=== PATIENT | female | born 1990 | race Caucasian/White ===

== ENCOUNTER 2020-08-18 23:08 | Emergency (ER) | payer MEDICAID ==
[~2020-08-18] VITALS: Ht 154.9 cm; Wt 70.0 kg
[2020-08-18] MEDS ORDERED: ONDANSETRON 2MG/ML, 2ML IVPush ONE (23:30)
[2020-08-18] MEDS ORDERED: HYDROmorphone 1 MG/ML, 1ML INJ IV ONE (23:30)
[2020-08-18] MEDS ORDERED: HYDROmorphone 1 MG/ML, 1ML INJ ONE ×2 (23:32→23:55)
[2020-08-18] MEDS ORDERED: ONDANSETRON 2MG/ML, 2ML ONE (23:32)
[2020-08-18 23:57] LABS: BASOPHILS % (AUTO) 1 % (0-1); EOSINOPHILS % (AUTO) 0 % (1-7); LYMPHOCYTES % (AUTO) 14 % (22-44); MEAN CORPUSCULAR HEMOGLOBIN 32.5 pg (27.0-34.8); MEAN CORPUSCULAR HGB CONC 33.4 g/dL (32.4-35.8); MEAN PLATELET VOLUME 9.8 fL (7.4-10.4); MONOCYTES % (AUTO) 4 % (2-9); NEUTROPHILS % (AUTO) 80 % (42-75); PLATELET COUNT 421 x10^3/uL (130-400); RED BLOOD COUNT 4.05 x10^6/uL (3.82-5.3); RED CELL DISTRIBUTION WIDTH 13.5 % (9.6-15.2)
[2020-08-18 23:58] LABS: MD NO
[2020-08-19] MEDS ORDERED: HYDROmorphone 1 MG/ML, 1ML INJ IV ONE
--- NOTE | 2020-08-19 | NUR ---
eloina rn: gave 1mg dilaudid for pain 03/02. pt to us now.
[2020-08-19 00:06] LABS: ALANINE AMINOTRANSFERASE 18 U/L (12-78); ALBUMIN 4.1 g/dL (3.4-5.0); ANION GAP 11 mmol/L (5-15); CALCIUM 9.1 mg/dL (8.5-10.1); CHLORIDE 110 mmol/L (98-107); CREATININE 0.98 mg/dL (0.55-1.02)
--- NOTE | 2020-08-19 00:07 | NUR ---
PT C/O EPIGASTRIC ABD PAIN AND CENTER LOWER ABD PAIN. PT MOVING AROUND BED IN 10/10 PAIN PER PATIENT. PT HAS BEEN MEDICATED. VS STABLE. WATER CHASER ON. NSR NOTED. PT HAS BEEN SEEN BY DR GARCÍA AND YESSICA ABBOTT. FAMILY AT BEDSIDE. VS STABLE. PT WENT TO US. WILL CONTINUE TO MONITOR.
[2020-08-19 00:11] LABS: ALKALINE PHOSPHATASE 82 U/L (45-117); BILIRUBIN,TOTAL 0.3 mg/dL (0.2-1.0); TOTAL PROTEIN 7.7 g/dL (6.4-8.2)
--- NOTE | 2020-08-19 00:24 | NUR ---
PT BACK FROM US. PT REPORTS HER PAIN IS NOW 4/10. CALL LIGHT IN PLACE. WILL CONTINUE TO MONITOR.
--- NOTE | 2020-08-19 00:27 | NUR ---
PT WENT TO CT
--- NOTE | 2020-08-19 00:58 | NUR ---
UA SENT. PT RESTING IN ROOM. VS STABLE. NO ACUTE DISTRESS NOTED. CALL LIGHT IN PLACE. WILL CONTINUE TO MONITOR.
[2020-08-19 01:01] LABS: MICROSCOPIC INDICATED
[2020-08-19 01:10] LABS: AMPHETAMINE SCREEN, URINE Negative (Negative); BARBITURATE SCREEN, URINE Negative (Negative); BENZODIAZEPINE SCREEN, URINE Negative (Negative); CANNABINOID SCREEN, URINE Positive (Negative); COCAINE SCREEN, URINE Negative (Negative); METHADONE SCREEN, URINE Negative (Negative); OPIATE SCREEN, URINE Positive (Negative)
--- NOTE | 2020-08-19 01:40 | NUR ---
PT RESTING IN ROOM. VS STABLE. NO ACUTE DISTRESS NOTED. CALL LIGHT IN PLACE. WILL CONTINUE TO MONITOR.
--- NOTE | 2020-08-19 01:54 | NUR ---
BEDSIDE REPORT GIVEN TO MCKENZIE RAY AND MCKENZIE KWAN
--- NOTE | 2020-08-19 01:56 | NUR ---
RECIEVED REPORT FROM ANGELINA RINCON. PT HAS CALL REMOTE.
[2020-08-19 02:00] VITALS: BP 99/56
[2020-08-19] MEDS ORDERED: OMNIPAQUE 350 MG/ML, 100ML BOTTLE ONE (02:56)
== END 2020-08-19 02:39 | disposition home or self-care (01) ==
LOC: ED 08-19 02:33
DX: K52.9 Noninfective gastroenteritis and colitis, unspecified (principal); N83.202 Unspecified ovarian cyst, left side
CPT/HCPCS: 36415; 74177; 76830; 80053; 80307; 80320; 81001; 83690; 84703; 85025; 96374; 96375; 99285; J1170; J2405; Q9967; G0480